=== PATIENT | female | born 1980 | race Caucasian/White ===

== ENCOUNTER 2018-08-26 08:35 | Day surgery (SDC) | payer OTHER ==
[2018-08-26] MEDS ORDERED: VANCOMYCIN HCL/NORMAL SALINE 250 ML IV ONE (08:43)
[2018-08-26] MEDS ORDERED: CIPROFLOXACIN 400 MG/DEXTROSE 200 ML IV ONE (08:43)
[2018-08-26] MEDS ORDERED: LR 1,000 ML IV ONE (08:59)
--- NOTE | 2018-08-26 10:03 | PDHPUP ---
History & Physical Update H&P update statement: This history and physical update is based on an assessment of the patient which was completed after admission or registration (within 24 hours), but prior to the surgery/procedure. H&P update: H&P reviewed & patient examined, no change in patient's condition since H&P completed
[2018-08-26] MEDS ORDERED: BUPIVACAINE/EPI 0.5% 30 ML SDV ONE (10:39)
--- NOTE | 2018-08-26 10:46 | PDANEPAE ---
ANE History of Present Illness EUA, hemorrhoidectomy ANE Past Medical History - Cardiovascular History Hx Hypertension: No Hx Arrhythmias: No Hx Chest Pain: No Hx Coronary Artery / Peripheral Vascular Disease: No Hx CHF / Valvular Disease: No Hx Palpitations: No - Pulmonary History Hx COPD: No Hx Asthma/Reactive Airway Disease: No Hx Recent Upper Respiratory Infection: No Hx Oxygen in Use at Home: No Hx Sleep Apnea: No - Neurologic History Hx Cerebrovascular Accident: No Hx Seizures: No Hx Dementia: No - Endocrine History Hx Diabetes: No - Renal History Hx Renal Disorders: No - Liver History Hx Hepatic Disorders: No - Neurological & Psychiatric Hx Hx Neurological and Psychiatric Disorders: No Neurological / Psychiatric History Comment: MS [place]royo diagnosed and treated with solumedrol. Presented with transient blindness and various weaknesses and numbness in extremities. Steroids imporved the symptoms significantly and she has residual R leg numbness and difficulty amblating as a result - Cancer History Hx Cancer: No - Congenital Disorder History Hx Congenital Disorders: No - GI History Hx Gastrointestinal Disorders: No - Other Health History Other Health History: MS - Chronic Pain History Chronic Pain: No - Surgical History Prior Surgeries: L ACL repair. x3 lap endometriosis ANE Review of Systems Review of Systems: - Exercise capacity METS (RN): 4 METS ANE Patient History - Allergies Allergies/Adverse Reactions: cefazolin [From Anc] Allergy (Verified 08/26/18 09:17) Anaphylaxis latex Allergy (Verified 08/26/18 09:17) Contact dermatitis & swelling nitrofurantoin Allergy (Verified 08/26/18 09:17) Swollen hands/feet & hives - Home Medications Home Medications: SOLU-MEDROL 08/26/18 [Last Taken 08/21/18] - NPO status NPO Since - Liquids (Date): 08/25/18 NPO Since - Liquids (Time): 19:30 NPO Since - Solids (Date): 08/25/18 NPO Since - Solids (Time): 19:30 - Smoking Hx Smoking Status: Never smoked - Family Anes Hx Family Hx Anesthesia Complications: None. ANE Labs/Vital Signs - Vital Signs Blood Pressure: 134/88 Heart Rate: 65 Respiratory Rate: 18 O2 Sat (%): 96 Height: 180.34 cm Weight: 77.111 kg ANE Physical Exam - Airway Neck exam: FROM Mallampati Score: Class 2 Mouth exam: normal dental/mouth exam - Pulmonary Pulmonary: no respiratory distress, no rales or rhonchi - Cardiovascular Cardiovascular: regular rate and rhythym, no murmur, rub, or gallop - ASA Status ASA Status: II (No weakness detected on PE) ANE Anesthesia Plan Anesthesia Plan: GA w LMA, GA with mask
[2018-08-26] MEDS ORDERED: MIDAZOLAM 2 MG/2 ML VIAL IVP ONE (10:47)
[2018-08-26] MEDS ORDERED: DEXAMETHASONE 4 MG/ML VIAL ONE ×2 (10:52→10:53)
[2018-08-26] MEDS ORDERED: ONDANSETRON 4 MG/2 ML VIAL ONE (10:52)
[2018-08-26] MEDS ORDERED: fentaNYL 100 MCG/2 ML INJ ONE (10:52)
[2018-08-26] MEDS ORDERED: LIDOCAINE 2% 100 MG/5 ML SYR ONE (10:53)
[2018-08-26] MEDS ORDERED: PROPOFOL 200 MG/20 ML VIAL ONE (10:53)
[2018-08-26] MEDS ORDERED: MEPERIDINE 25 MG/0.5 ML AMP IVP PRN (11:54)
[2018-08-26] MEDS ORDERED: ONDANSETRON 4 MG/2 ML VIAL IVP PRN (11:54)
[2018-08-26] MEDS ORDERED: LR 500 ML IV PRN (11:54)
[2018-08-26] MEDS ORDERED: HYDROCODONE/APAP 5/325 TAB PO PRN (11:54)
[2018-08-26] MEDS ORDERED: NALOXONE HCL 0.4 MG/ML INJ IVP PRN (11:54)
[2018-08-26] MEDS ORDERED: HYDROmorphONE/DILAUDID 2 MG/ML INJ IVP PRN (11:54)
[2018-08-26] MEDS ORDERED: fentaNYL 100 MCG/2 ML INJ IVP PRN (11:54)
[2018-08-26] MEDS ORDERED: DIAZEPAM 5 MG/ML 1 ML SYR ONE (12:18)
[2018-08-26] MEDS ORDERED: HYDROmorphONE/DILAUDID 1 MG/ML INJ IVP PRN (12:22)
[2018-08-26] MEDS ORDERED: oxyCODONE IR 5 MG TAB PO PRN (12:24)
[2018-08-26] MEDS ORDERED: ACETAMINOPHEN 325 MG TAB PO PRN (12:24)
[2018-08-26] MEDS ORDERED: DIAZEPAM 5 MG/ML 1 ML SYR IVP PRN (12:38)
--- NOTE | 2018-08-26 12:43 | POSTANESTH ---
Post Anesthetic Evaluation Cardiovascular Status: Normal, Stable Respiratory Status: Normal, Stable Level of Consciousness/Mental Status: Can Participate in Eval, Moderately Sleepy , Other, See Comment Pain Control: Adequate, Prn Tx Ordered Nausea/Vomiting Control: Adequate, Prn Tx Ordered Complications Possibly Related to Anesthesia: Other, See Comments (Patient had witnessed tonic spasms. Treated with IV Valium. No bowel or bladder incontinence or obstruction of her airway during the event. Lasted about 3 minutes and VSS throughout. No supportive care needed. Neurology consulted and discussion revealed expected tonic spasms from plaques and disruption of motor neuron signaling. No further treatment necessary and patient ok to be dc'd home if feeling well. She is ecouraged to follow up as scheduled with her neurologist as her new diagnosis of MS is worked up. I then spoke with her and Dr. Lacey and relayed all this information)
[2018-08-26 13:59] VITALS: BP 133/76
[2018-08-26] MEDS ORDERED: KETOROLAC 15 MG/1 ML SDV IVP SCH (18:00)
== END 2018-08-26 15:40 | disposition home or self-care (01) ==
LOC: FSGY 08:35 → F3N 12:21 → UNDOADMOB 12:21 → UNDODISOB 15:40 → FSGY 15:40
PROVIDERS: ATTEND Surgery
PROC: 06BY0ZC Excision of Hemorrhoidal Plexus, Open Approach (ICD-10-PCS; principal; 2018-08-26 10:15)
DX: K64.5 Perianal venous thrombosis (principal); G35 Multiple sclerosis
CPT/HCPCS: J1100; J2001; J2250; J2405; J2704; J3010; J3360; J3370

== ENCOUNTER 2019-01-21 13:06 | Inpatient (IN) | payer OTHER | END 2019-01-24 17:02 | LOC: F2N 15:23 ==